=== PATIENT | female | born 1940 | race Caucasian/White ===

== ENCOUNTER 2017-03-03 20:40 | Outpatient (CLI) | payer MEDICARE, OTHER | END 2017-03-03 20:41 | disposition EMS.NT | LOC: EMS 20:40 | PROVIDERS: ATTEND Surgery | DX: Z03.89 Encounter for observation for other suspected diseases and conditions ruled out (principal) ==

== ENCOUNTER 2018-04-07 10:16 | Outpatient (CLI) | payer MEDICARE, OTHER ==
[2018-04-07 17:23] LABS: BASOPHILS # (AUTO) 0.1 10^3/uL (0.0-0.1); BASOPHILS % (AUTO) 1.1 %; EOSINOPHILS # (AUTO) 0.2 10^3/uL (0.0-0.7); EOSINOPHILS % (AUTO) 2.6 %; HGB - HEMOGLOBIN 14.2 g/dL (12.0-16.0); LYMPHOCYTES # (AUTO) 2.1 10^3/uL (1.5-3.5); LYMPHOCYTES % (AUTO) 28.1 %; MEAN CORPUSCULAR HEMOGLOBIN 32.1 pg (27.0-31.0); MEAN CORPUSCULAR HGB CONC 33.6 g/dL (32.0-36.0); MEAN CORPUSCULAR VOLUME 95.6 fL (81.0-99.0); MEAN PLATELET VOLUME 7.8 fL (7.9-10.8); MONOCYTES # (AUTO) 0.6 10^3/uL (0.0-1.0); NEUTROPHILS # (AUTO) 4.5 10^3/uL (1.5-6.6); NEUTROPHILS % (AUTO) 60.2 %; PLT - PLATELET COUNT 342 10^3/uL (130-450); RED BLOOD COUNT 4.44 10^6/uL (4.20-5.40); RED CELL DISTRIBUTION WIDTH 13.9 % (12.0-15.0); WHITE BLOOD COUNT 7.5 x10^3/uL (4.8-10.8)
[2018-04-07 18:03] LABS: ALBUMIN 4.7 g/dL (3.2-5.5); ALBUMIN/GLOBULIN RATIO 1.6 (1.0-2.2); ALKALINE PHOSPHATASE 99 IU/L (42-121); ALT ALANINE AMINOTRANSFERASE 17 IU/L (10-60); AST ASPARTATE AMINOTRANSFERASE 27 IU/L (10-42); BILIRUBIN,TOTAL 0.8 mg/dL (0.2-1.0); BUN - BLOOD UREA NITROGEN 14 mg/dL (6-20); CALCIUM 9.4 mg/dL (8.5-10.3); CARBON DIOXIDE - CO2 26 mmol/L (21-32); CHLORIDE 105 mmol/L (101-111); CHOL/HDL RATIO 2.5 (<4.4); CHOLESTEROL 232 mg/dL; CREATININE 0.6 mg/dL (0.4-1.0); GFR - MDRD 97 (>89); GLUCOSE 91 mg/dL (70-100); HDL CHOLESTEROL 93 mg/dL; LDL CHOLESTEROL,CALCULATED 128 mg/dL; LDL/HDL RATIO 1.4 (<4.4); SODIUM 140 mmol/L (135-145); TOTAL PROTEIN 7.7 g/dL (6.7-8.2); VLDL CHOLESTEROL 11 mg/dL
== END 2018-04-07 10:17 | disposition home or self-care (01) ==
LOC: LAB.F 10:16
PROVIDERS: ATTEND Family Medicine
DX: M81.0 Age-related osteoporosis without current pathological fracture (principal); F43.0 Acute stress reaction; G47.00 Insomnia, unspecified; M17.11 Unilateral primary osteoarthritis, right knee
CPT/HCPCS: 36415; 80053; 80061; 83721; 84443; 85025

== ENCOUNTER 2019-01-02 13:16 | Outpatient (CLI) | payer MEDICARE, OTHER | END 2019-01-02 13:17 | disposition home or self-care (01) | LOC: DI 13:16 | PROVIDERS: ATTEND Family Medicine | DX: I07.1 Rheumatic tricuspid insufficiency (principal) | CPT/HCPCS: 93306 ==

== ENCOUNTER 2020-04-10 08:10 | Outpatient (CLI) | payer MEDICARE, OTHER | END 2020-04-10 08:11 | disposition home or self-care (01) | LOC: DI 08:10 | PROVIDERS: ATTEND Family Medicine | DX: I08.2 Rheumatic disorders of both aortic and tricuspid valves (principal) | CPT/HCPCS: 93306 ==

== ENCOUNTER 2020-06-19 12:58 | Outpatient (CLI) | payer MEDICARE, OTHER ==
[2020-06-19 15:15] LABS: BASOPHILS # (AUTO) 0.1 10^3/uL (0.0-0.1); BASOPHILS % (AUTO) 1.3 %; EOSINOPHILS # (AUTO) 0.3 10^3/uL (0.0-0.7); HGB - HEMOGLOBIN 14.2 g/dL (12.0-16.0); LYMPHOCYTES % (AUTO) 28.5 %; MEAN CORPUSCULAR HEMOGLOBIN 32.7 pg (27.0-31.0); MEAN CORPUSCULAR HGB CONC 33.5 g/dL (32.0-36.0); MEAN CORPUSCULAR VOLUME 97.7 fL (81.0-99.0); MEAN PLATELET VOLUME 9.8 fL (7.9-10.8); MONOCYTES # (AUTO) 0.7 10^3/uL (0.0-1.0); MONOCYTES % (AUTO) 9.2 %; NEUTROPHILS # (AUTO) 4.1 10^3/uL (1.5-6.6); NEUTROPHILS % (AUTO) 56.7 %; PLT - PLATELET COUNT 343 10^3/uL (130-450); RED BLOOD COUNT 4.34 10^6/uL (4.20-5.40); RED CELL DISTRIBUTION WIDTH 12.3 % (12.0-15.0); WHITE BLOOD COUNT 7.2 x10^3/uL (4.8-10.8)
[2020-06-19 15:41] LABS: ALBUMIN 4.8 g/dL (3.2-5.5); ALBUMIN/GLOBULIN RATIO 1.6 (1.0-2.2); BILIRUBIN,TOTAL 0.6 mg/dL (0.2-1.0); CALCIUM 9.8 mg/dL (8.5-10.3); CREATININE 0.6 mg/dL (0.4-1.0); TOTAL PROTEIN 7.8 g/dL (6.7-8.2)
== END 2020-06-19 12:59 | disposition home or self-care (01) ==
LOC: LAB.S 12:58
PROVIDERS: ATTEND Internal Medicine Rheumatology
DX: E55.9 Vitamin D deficiency, unspecified (principal); Z86.79 Personal history of other diseases of the circulatory system
CPT/HCPCS: 36415; 80053; 82306; 85025; 85651; 86140

== ENCOUNTER 2020-12-09 09:50 | Outpatient (CLI) | payer MEDICARE, OTHER ==
[2020-12-09 10:11] LABS: BASOPHILS # (AUTO) 0.1 10^3/uL (0.0-0.1); BASOPHILS % (AUTO) 1.4 %; EOSINOPHILS # (AUTO) 0.3 10^3/uL (0.0-0.7); EOSINOPHILS % (AUTO) 5.1 %; HCT - HEMATOCRIT 44.1 % (37.0-47.0); HGB - HEMOGLOBIN 14.1 g/dL (12.0-16.0); LYMPHOCYTES # (AUTO) 2.3 10^3/uL (1.5-3.5); LYMPHOCYTES % (AUTO) 35.4 %; MEAN CORPUSCULAR HEMOGLOBIN 31.3 pg (27.0-31.0); MEAN CORPUSCULAR VOLUME 97.8 fL (81.0-99.0); MEAN PLATELET VOLUME 8.9 fL (7.9-10.8); MONOCYTES # (AUTO) 0.6 10^3/uL (0.0-1.0); MONOCYTES % (AUTO) 9.4 %; NEUTROPHILS # (AUTO) 3.2 10^3/uL (1.5-6.6); NEUTROPHILS % (AUTO) 48.4 %; PLT - PLATELET COUNT 299 10^3/uL (130-450); RED BLOOD COUNT 4.51 10^6/uL (4.20-5.40); RED CELL DISTRIBUTION WIDTH 13.4 % (12.0-15.0); WHITE BLOOD COUNT 6.5 x10^3/uL (4.8-10.8)
[2020-12-09 10:25] LABS: ALBUMIN 4.7 g/dL (3.2-5.5); ALBUMIN/GLOBULIN RATIO 1.5 (1.0-2.2); ALKALINE PHOSPHATASE 75 IU/L (42-121); ALT ALANINE AMINOTRANSFERASE 16 IU/L (10-60); AST ASPARTATE AMINOTRANSFERASE 23 IU/L (10-42); BILIRUBIN,TOTAL 0.6 mg/dL (0.2-1.0); BUN - BLOOD UREA NITROGEN 18 mg/dL (6-20); CALCIUM 9.5 mg/dL (8.5-10.3); CARBON DIOXIDE - CO2 22 mmol/L (21-32); CHLORIDE 104 mmol/L (101-111); CREATININE 0.6 mg/dL (0.4-1.0); GFR - MDRD 97 (>89); GLUCOSE 99 mg/dL (70-100); POTASSIUM 3.4 mmol/L (3.5-5.0); SODIUM 138 mmol/L (135-145); TOTAL PROTEIN 7.8 g/dL (6.7-8.2)
[2020-12-09 10:54] LABS: CRP - C-REACTIVE PROTEIN < 1.0 mg/dL (0-1.0)
--- NOTE | 2020-12-10 16:22 | DEXA Report ---
PROCEDURE: Dexa Spine and/or Hip INDICATIONS: OSTEOPOROSIS TECHNIQUE: Dual energy x-ray absorptiometry (DXA) was performed on a Weavly System. Regions measur ed are the AP Spine, femoral neck, and if needed forearm. COMPARISON: None. FINDINGS: Lumbar Spine: Bone Mineral Density 1.310 g/cm/cm,T score 1.1, normal Left Hip: Bone Mineral Density 0.773 g/cm/cm,T score -1.9, osteopenia Left Femoral Neck: Bone Mineral Density 0.697 g/cm/cm, T score -2.5, osteoporosis (T score greater or equal to -1.0: NORMAL) (T score from -1.1 to -2.4: OSTEOPENIA) (T score less than or equal to -2.5 to: OSTEOPOROSIS) Impression: Normal bone mineral density at the lumbosacral spine but osteopenia is present at the lef t hip overall and osteoporosis is seen at the left femoral neck. Patients with diagnosis of osteoporosis or osteopenia should have regular bone mineral density assess ment. For those eligible for Medicare, routine testing is allowed once every 2 years. Testing frequ ency can be increased for patients who have rapidly progressing disease or for those who are receivin g medical therapy to restore bone mass. Reviewed by: Irwin Meehan MD on 12/10/2020 4:20 PM PDT Approved by: Irwin Meehan MD on 12/10/2020 4:20 PM PDT Station ID: [id number]
== END 2020-12-09 09:51 | disposition home or self-care (01) ==
LOC: DI 09:50
PROVIDERS: ATTEND Internal Medicine Rheumatology
DX: M81.0 Age-related osteoporosis without current pathological fracture (principal)
CPT/HCPCS: 36415; 80053; 82306; 85025; 85651; 86140

== ENCOUNTER 2021-01-27 14:30 | Outpatient (CLI) | payer MEDICARE, OTHER ==
--- NOTE | 2021-01-27 14:54 | XRAY Report ---
PROCEDURE: Lumbar Spine 2 View INDICATIONS: Lumbar radiculopathy TECHNIQUE: 2 views of the lumbar spine were acquired. COMPARISON: None FINDINGS: Bones: There is S-shaped scoliosis in the thoracolumbar lumbar spine. A lower lumbar spine levoscolio sis centered at L4 has a Hussein angle of approximately 13 degrees. A thoracolumbar dextroscoliosis has a Hussein angle of approximately 5 degrees. Rotational component to the scoliosis is present. Straighten ing of the usual lumbar lordosis. No listhesis. There is chronic-appearing height loss at the T12 lev el with approximately 50% height loss anteriorly and centrally and approximately 30% height loss post eriorly. Extensive diffuse disc height loss at every level in the lumbar spine. Associated degenerati ve endplate change and facet hypertrophy producing at least moderate neural foraminal narrowing from L3-L4 through L5-S1. Soft tissues: Overlying bowel gas pattern is normal. No suspicious soft tissue calcifications. IMPRESSION: Chronic-appearing compression fracture at T12 with approximately 50% height loss. Slight osseous retr opulsion producing suspected spinal canal stenosis, likely mild to moderate. Cross-sectional imaging recommended for further evaluation (preferably MRI although CT could be considered if there are contr aindications to MRI). Multifactorial extensive degenerative changes producing suspected moderate neural foraminal narrowing from L3-L4 through L5-S1. S-shaped scoliosis in the thoracolumbar lumbar spine. Reviewed by: Romero Daniels MD on 01/27/2021 2:53 PM PDT Approved by: Romero Daniels MD on 01/27/2021 2:53 PM PDT Station ID: [id number]
== END 2021-01-27 14:31 | disposition home or self-care (01) ==
LOC: DI 14:30
PROVIDERS: ATTEND Family Medicine
DX: M47.27 Other spondylosis with radiculopathy, lumbosacral region (principal); M41.9 Scoliosis, unspecified; M25.559 Pain in unspecified hip

== ENCOUNTER 2021-02-10 07:07 | Outpatient (CLI) | payer MEDICARE, OTHER ==
--- NOTE | 2021-02-10 12:18 | Ultrasound Report ---
PROCEDURE: Carotid Doppler Complete INDICATIONS: LUMBAR RADICULOPATHY, CAROTID BRUIT TECHNIQUE: Color and pulse Doppler interrogation was performed of both carotid systems, with image documentation and velocity measurements. COMPARISON: None. FINDINGS: Right side: Brachial blood pressure: 140/64 mm Hg. Common carotid artery peak systolic velocity: 74 cm/sec. Internal carotid artery peak systolic velocity: 106 cm/sec. Internal carotid artery end diastolic velocity: 29 cm/sec. External carotid artery peak systolic velocity: 84 cm/sec. ICA/CCA peak systolic ratio: 1.4 . Silva scale imaging description: Calcified plaque Percent internal carotid artery stenosis: Less than 50% . Vertebral artery: Flow direction is antegrade. Left side: Brachial blood pressure: 134/57 mm Hg. Common carotid artery peak systolic velocity: 72 cm/sec. Internal carotid artery peak systolic velocity: 95 cm/sec. Internal carotid artery end diastolic velocity: 30 cm/sec. External carotid artery peak systolic velocity: 72 cm/sec. ICA/CCA peak systolic ratio: 1.3 . Silva scale imaging description: Calcified plaque Percent internal carotid artery stenosis: Less than 50% . Vertebral artery: Flow direction is antegrade. IMPRESSION: Less than 50% stenosis of the origins of the internal carotid arteries bilaterally. The estimate of stenosis included in the report of the imaging study was calculated using the NASCET method Reviewed by: Marlin Mcnulty MD, PhD on 02/10/2021 12:17 PM PDT Approved by: Marlin Mcnulty MD, PhD on 02/10/2021 12:17 PM PDT Station ID: [id number]
--- NOTE | 2021-02-10 14:37 | MRI Report ---
PROCEDURE: Lumbar Spine W/O INDICATIONS: LUMBAR RADICULOPATHY TECHNIQUE: Noncontrast sagittal T1 spin echo and T2 fast echo, sagittal STIR, coronal T2, axial T1 and T2 fast s pin echo through the lumbar spine. In cases with scoliosis, additional coronal T2 fast spin echo may be performed. COMPARISON: Plain films of the lumbar spine dated 01/27/2021. FINDINGS: Image quality: Excellent. Alignment and Curvature: 5 lumbar type vertebral bodies are present by plain film. There is moderate leftward curvature of the lower lumbar spine and moderate rightward curvature of the upper lumbar spi ne. There is loss of normal lumbar lordosis. There is mild grade 1 retrolisthesis of L1 on L2 and L2 on L3. Bone Marrow: Marrow is of normal overall signal. No acute vertebral body compression fractures. Mo derate reactive signal throughout the endplates of the lumbar and lower thoracic spine. There is mild chronic wedging of T12. Spinal Cord: Conus medullaris terminates at the L1-L2 disc space level. Visualized cord demonstrate s normal signal and size. Paraspinous Soft Tissues: No paravertebral masses. T12-L1: Moderate disc height loss and desiccation. Moderate diffuse disc bulge with superimposed bro ad-based right posterolateral and far lateral protrusion. Mild facet and ligament flavum hypertrophy. Mild epidural lipomatosis. Moderate canal stenosis. Moderate bilateral foraminal stenosis. L1-L2: Moderate disc height loss and desiccation. Mild diffuse disc bulge. Mild facet and ligament flavum hypertrophy. Mild epidural lipomatosis. Mild canal stenosis. Mild right and moderate left for aminal stenosis. L2-L3: Moderate disc height loss and desiccation. Moderate diffuse disc bulge. Mild facet and liga ment flavum hypertrophy. Mild epidural lipomatosis. Mild canal stenosis. Mild bilateral foraminal jaimee nosis. L3-L4: Moderate disc height loss and desiccation. Mild diffuse disc bulge. Mild facet and ligament flavum hypertrophy. Mild epidural lipomatosis. Mild canal stenosis. Moderate bilateral foraminal sten osis. L4-L5: Moderate disc height loss and desiccation. Mild diffuse disc bulge. Mild facet and ligament flavum hypertrophy. Mild canal stenosis. Moderate right greater than left foraminal stenosis. L5-S1: Moderate disc height loss and desiccation. Mild diffuse disc bulge. Mild bilateral facet and ligament flavum hypertrophy. Mild canal stenosis. Mild right and moderate left foraminal stenosis. IMPRESSION: 1. Multilevel degenerative disc and facet disease, in addition to epidural lipomatosis and ligamentum flavum hypertrophy. 2. Multilevel canal stenoses, worst at T12-L1, where there is moderate canal stenosis. 3. Multilevel foraminal stenoses, worst at T12-L1, L1-L2, L3-L4, L4-L5, and L5-S1, where there are mo derate foraminal stenoses as described above. Reviewed by: Dusty Tubbs MD on 02/10/2021 2:36 PM PDT Approved by: Dusty Tubbs MD on 02/10/2021 2:36 PM PDT Station ID: [id number]
== END 2021-02-10 07:08 | disposition home or self-care (01) ==
LOC: DI 07:07
PROVIDERS: ATTEND Family Medicine
DX: M51.17 Intervertebral disc disorders with radiculopathy, lumbosacral region (principal); M48.07 Spinal stenosis, lumbosacral region; R09.89 Other specified symptoms and signs involving the circulatory and respiratory systems
CPT/HCPCS: 93880

== ENCOUNTER 2021-05-16 15:22 | Outpatient (CLI) | payer MEDICARE, OTHER | END 2021-05-16 15:23 | disposition EMS.NT | LOC: EMS 15:22 | DX: Z03.89 Encounter for observation for other suspected diseases and conditions ruled out (principal) ==

== ENCOUNTER 2021-08-18 19:22 | Outpatient (CLI) | payer MEDICARE, OTHER | END 2021-08-18 19:23 | disposition critical access hospital (66) | LOC: EMS 19:22 | DX: R58 Hemorrhage, not elsewhere classified (principal); Z96.641 Presence of right artificial hip joint; R42 Dizziness and giddiness; S09.90XA Unspecified injury of head, initial encounter; Y92.009 Unspecified place in unspecified non-institutional (private) residence as the place of occurrence of the external cause; W18.39XA Other fall on same level, initial encounter; Z79.01 Long term (current) use of anticoagulants | CPT/HCPCS: A0425; A0429 ==

== ENCOUNTER 2021-08-18 19:47 | Emergency (ER) | payer MEDICARE, OTHER ==
--- NOTE | 2021-08-18 19:55 | ED Physician Documentation ---
PD HPI Fall - Stated complaint Stated Complaint: GLF, DIZZY, HIT HEAD, NECK PAIN, INCISION BLEEDING - History obtained from History obtained from: Patient - History of Present Illness Mechanism of injury: Lost balance Fall distance: Standing position Where injury occurred: Home Timing - onset: Enter time (16:30), Today Injury(ies) location: Head Pain level now: 2 Associated symptoms: No: LOC, AMS, Neck pain Contributing factors: Anticoagulated - Additional information Additional information: patient underwent right hip replacement approximately 3 weeks ago (Dr. Head at [facility]). Patient says that since the surgery she has had daily episodes of dizziness. Four days ago, without apparent provoking incident, she noted sudden increased swelling of the right hip area. She says she spoke to orthopedic surgery and was told this was likely a hematoma and could be evaluated in follow-up. Tonight she had an episode of dizziness that caused her to fall. She denies LOC. She notes some bleeding from the right hip surgical site subsequent to falling. she does not note any increase in hip pain after falling but she is having generalized headache. Review of Systems Constitutional: reports: Reviewed and negative Eyes: reports: Reviewed and negative Ears: reports: Reviewed and negative Nose: reports: Reviewed and negative Throat: reports: Reviewed and negative Cardiac: reports: Reviewed and negative Respiratory: reports: Reviewed and negative GI: reports: Reviewed and negative : denies: Dysuria, Frequency Musculoskeletal: denies: Neck pain, Back pain Neurologic: reports: Headache, Head injury. denies: Generalized weakness, Focal weakness, Numbness, LOC PD PAST MEDICAL HISTORY - Past Medical History Past Medical History: Yes Cardiovascular: Atrial fibrillation - Past Surgical History Past Surgical History: Yes Ortho: Hip replacement /[employer]: Tubal ligation, Hysterectomy - Present Medications Home Medications: Ambulatory Orders Medication Instructions Recorded Confirmed Gabapentin [Neurontin] 100 mg PO DAILY 01/11/14 08/18/21 Apixaban [Eliquis] 5 mg PO BID 08/18/21 08/18/21 - Allergies Allergies/Adverse Reactions: Allergies Allergy/AdvReac Type Severity Reaction Status Date / Time acetaminophen [From Percocet] AdvReac Unknown Verified 08/18/21 20:15 oxycodone [From Percocet] AdvReac Unknown Verified 08/18/21 20:15 - Social History Does the pt smoke?: No Smoking Status: Never smoker Does the pt drink ETOH?: Yes Does the pt have substance abuse?: No - Immunizations Immunizations are current?: Yes - POLST Patient has POLST: No PD ED PE NORMAL - Vitals Vital signs reviewed: Yes - General General: Alert and oriented X 3, No acute distress, Well developed/nourished - HEENT HEENT: PERRL, EOMI, Other (right frontal scalp hematoma without bony tenderness) - Neck Neck: Supple, no meningeal sign, No bony TTP - Cardiac Cardiac: RRR, No murmur - Respiratory Respiratory: No respiratory distress, Clear bilaterally - Abdomen Abdomen: Soft, Non tender - Neuro Neuro: Alert and oriented X 3, senior science consultant 2-12 intact, No motor deficit, No sensory deficit, Normal speech Eye Opening: Spontaneous Motor: Obeys Commands Verbal: Oriented GCS Score: 15 PD ED PE EXPANDED - Extremities Extremities: Other (right hip surgical site: mostly intact but there is a 2-3 cm length that has 2 mm gap in wound edges with scant bleeding and visible clots . she has good ROM of the right hip) Results - Vitals Vitals: Vital Signs - 24 hr 08/18/21 08/18/21 08/18/21 22:05 22:53 23:29 Temperature 36.6 C Heart Rate 105 H 106 H 99 Respiratory 17 16 16 Rate Blood Pressure 115/67 131/80 H 106/51 L O2 Saturation 97 100 08/18/21 08/18/21 08/18/21 23:35 23:44 23:50 Temperature 36.4 C L 36.4 C L Heart Rate 101 H 99 110 H Respiratory 16 16 16 Rate Blood Pressure 95/45 L 117/55 L O2 Saturation 08/19/21 08/19/21 08/19/21 01:07 01:42 02:01 Temperature 36.7 C 36.6 C Heart Rate 112 H 99 88 Respiratory 16 20 17 Rate Blood Pressure 92/42 L O2 Saturation 08/19/21 08/19/21 08/19/21 02:03 02:07 02:18 Temperature 36.6 C Heart Rate 86 Respiratory 16 16 Rate Blood Pressure 101/57 L O2 Saturation 08/19/21 08/19/21 08/19/21 03:54 03:57 05:59 Temperature 36.4 C L 36.4 C L Heart Rate 100 99 Respiratory 16 15 16 Rate Blood Pressure 102/52 L 101/45 L O2 Saturation 95 08/19/21 08/19/21 08/19/21 08:14 09:42 11:55 Temperature 36.6 C 36.1 C L Heart Rate 92 87 90 Respiratory 16 14 14 Rate Blood Pressure 105/75 106/51 L 108/51 L O2 Saturation 98 94 100 Oxygen O2 Source Room air - Labs Labs: Microbiology 08/18/21 22:00 Occult Blood - Final Stool Laboratory Tests 08/18/21 08/18/21 08/18/21 20:00 20:00 20:00 WBC 35.0 H* RBC 1.83 L Hgb 6.1 L* Hct 18.3 L* MCV 100.0 H MCH 33.3 H MCHC 33.3 RDW 13.5 Plt Count 449 MPV 9.1 Neut # (Auto) Not Reportable Lymph # (Auto) Not Reportable Garvin # (Auto) Not Reportable Eos # (Auto) Not Reportable Baso # (Auto) Not Reportable Absolute Nucleated RBC Not Reportable Total Counted 100 Band Neuts % (Manual) 6 Abnorm Lymph % (Manual) 0 Nucleated RBC % Not Reportable Neutrophils # (Manual) 32.6 H Lymphocytes # (Manual) 1.1 L Monocytes # (Manual) 1.1 H Eosinophils # (Manual) 0.0 Basophils # (Manual) 0.4 H Differential Comment MANUAL DIFFERENTIAL WBC Morphology Platelet Estimate NORMAL (130-450,000) Platelet Morphology RBC Morph Micro Appear NORMAL APPEARANCE PT 19.1 H INR 1.7 H APTT 31.1 Sodium 126 L Potassium 3.8 Chloride 95 L Carbon Dioxide 20 L Anion Gap 11.0 BUN 27 H Creatinine 1.5 H Estimated GFR (MDRD) 34 L Glucose 175 H Calcium 8.5 Total Bilirubin 0.6 AST 23 ALT 12 Alkaline Phosphatase 63 Total Protein 6.4 L Albumin 3.6 Globulin 2.8 Albumin/Globulin Ratio 1.3 Lipase 23 Nasal Adenovirus (PCR) Nasal B. parapertussis DNA (PCR) Nasal Coronavir 229E PCR Nasal Coronavir HKU1 PCR Nasal Coronavir NL63 PCR Nasal Coronavir OC43 PCR Nasal Enterovir/Rhinovir PCR Nasal Influenza B PCR Nasal Influenza A PCR Nasal Parainfluen 1 PCR Nasal Parainfluen 2 PCR Nasal Parainfluen 3 PCR Nasal Parainfluen 4 PCR Nasal RSV (PCR) Nasal B.pertussis DNA PCR Nasal C.pneumoniae (PCR) Kanu Human Metapneumo PCR Nasal M.pneumoniae (PCR) Nasal SARS-CoV-2 (PCR) Blood Type Antibody Screen Crossmatch IS Only 08/18/21 08/18/21 08/19/21 21:44 23:35 04:04 WBC 25.1 H RBC 2.50 L Hgb 7.9 L Hct 23.6 L MCV 94.4 MCH 31.6 H MCHC 33.5 RDW 15.7 H Plt Count 324 MPV 8.5 Neut # (Auto) Not Reportable Lymph # (Auto) Not Reportable Garvin # (Auto) Not Reportable Eos # (Auto) Not Reportable Baso # (Auto) Not Reportable Absolute Nucleated RBC Not Reportable Total Counted 100 Band Neuts % (Manual) 1 Abnorm Lymph % (Manual) 0 Nucleated RBC % Not Reportable Neutrophils # (Manual) 23.1 H Lymphocytes # (Manual) 1.5 Monocytes # (Manual) 0.0 Eosinophils # (Manual) 0.5 Basophils # (Manual) 0.0 Differential Comment MANUAL DIFFERENTIAL WBC Morphology NORMAL APPEARANCE Platelet Estimate NORMAL (130-450,000) Platelet Morphology NORMAL APPEARANCE RBC Morph Micro Appear 1+ ANISOCYTOSIS PT INR APTT Sodium Potassium Chloride Carbon Dioxide Anion Gap BUN Creatinine Estimated GFR (MDRD) Glucose Calcium Total Bilirubin AST ALT Alkaline Phosphatase Total Protein Albumin Globulin Albumin/Globulin Ratio Lipase Nasal Adenovirus (PCR) NOT DETECTED Nasal B. parapertussis DNA (PCR) NOT DETECTED Nasal Coronavir 229E PCR NOT DETECTED Nasal Coronavir HKU1 PCR NOT DETECTED Nasal Coronavir NL63 PCR NOT DETECTED Nasal Coronavir OC43 PCR NOT DETECTED Nasal Enterovir/Rhinovir PCR NOT DETECTED Nasal Influenza B PCR NOT DETECTED Nasal Influenza A PCR NOT DETECTED Nasal Parainfluen 1 PCR NOT DETECTED Nasal Parainfluen 2 PCR NOT DETECTED Nasal Parainfluen 3 PCR NOT DETECTED Nasal Parainfluen 4 PCR NOT DETECTED Nasal RSV (PCR) NOT DETECTED Nasal B.pertussis DNA PCR NOT DETECTED Nasal C.pneumoniae (PCR) NOT DETECTED Kanu Human Metapneumo PCR NOT DETECTED Nasal M.pneumoniae (PCR) NOT DETECTED Nasal SARS-CoV-2 (PCR) NOT DETECTED Blood Type A POSITIVE Antibody Screen NEGATIVE Crossmatch IS Only See Detail 08/19/21 08/19/21 08/19/21 07:54 11:02 11:02 WBC 16.2 H RBC 2.49 L Hgb 8.0 L Hct 23.3 L MCV 93.6 MCH 32.1 H MCHC 34.3 RDW 16.5 H Plt Count 312 MPV 8.5 Neut # (Auto) 14.3 H Lymph # (Auto) 0.9 L Garvin # (Auto) 0.5 Eos # (Auto) 0.4 Baso # (Auto) 0.1 Absolute Nucleated RBC 0.02 Total Counted Band Neuts % (Manual) Abnorm Lymph % (Manual) Nucleated RBC % 0.1 Neutrophils # (Manual) Lymphocytes # (Manual) Monocytes # (Manual) Eosinophils # (Manual) Basophils # (Manual) Differential Comment WBC Morphology Platelet Estimate Platelet Morphology RBC Morph Micro Appear PT INR APTT Sodium 131 L 131 L Potassium 4.0 4.1 Chloride 101 102 Carbon Dioxide 21 22 Anion Gap 9.0 7.0 BUN 25 H 24 H Creatinine 0.9 0.9 Estimated GFR (MDRD) 61 L 61 L Glucose 98 96 Calcium 8.4 L 8.2 L Total Bilirubin AST ALT Alkaline Phosphatase Total Protein Albumin Globulin Albumin/Globulin Ratio Lipase Nasal Adenovirus (PCR) Nasal B. parapertussis DNA (PCR) Nasal Coronavir 229E PCR Nasal Coronavir HKU1 PCR Nasal Coronavir NL63 PCR Nasal Coronavir OC43 PCR Nasal Enterovir/Rhinovir PCR Nasal Influenza B PCR Nasal Influenza A PCR Nasal Parainfluen 1 PCR Nasal Parainfluen 2 PCR Nasal Parainfluen 3 PCR Nasal Parainfluen 4 PCR Nasal RSV (PCR) Nasal B.pertussis DNA PCR Nasal C.pneumoniae (PCR) Kanu Human Metapneumo PCR Nasal M.pneumoniae (PCR) Nasal SARS-CoV-2 (PCR) Blood Type Antibody Screen Crossmatch IS Only - Rads (name of study) CTH Radiology: Prelim report reviewed, See rad report CT cervical spine Radiology: Prelim report reviewed, See rad report CT right hip Radiology: Prelim report reviewed, See rad report PD MEDICAL DECISION MAKING - ED course Complexity details: reviewed results, re-evaluated patient, considered differential, d/w patient ED course: Patient presents after falling due to dizziness. She notes swelling right hip x 4 days; she underwent right hip replacement 3 weeks ago but swelling suddenly worsened 4 days ago. she is found to have severe anemia with hemoglobin 6.1, as well as WBC of 35k. She does not have elements of H+P to suggest acute infectious process. She is guaiac negative and CT hip demonstrates large hematoma. She is transfused two units PRBC. I discussed the case with Dr. Mejia (orthopedic surgery at [facility]). She will relay this information to Dr. Haed. Case signed out to Dr. Leija at end of my shift pending disposition. Departure - Departure Disposition: Home, Self Care Clinical Impression: Hematoma Anemia Qualifiers: Anemia type: unspecified type Qualified Code(s): D64.9 - Anemia, unspecified Leukocytosis Qualifiers: Leukocytosis type: unspecified Qualified Code(s): D72.829 - Elevated white blood cell count, unspecified Condition: Good Instructions: ED Hematoma Follow-Up: Tiffanie Olea MD [Primary Care Provider] - Within 3 Days Comments: You will need to have your blood counts rechecked with your doctor in 2 to 3 days. Please return sooner if you worsen. Stop your Eliquis until told by your doctor to resume it. Discharge Date/Time: 08/19/21 15:30
[2021-08-18] MEDS ORDERED: SODIUM CHLORIDE 0.9% 1,000 ML IV STA (20:21)
[2021-08-18] MEDS ORDERED: ONDANSETRON 4 MG/2 ML VIAL IVP STA (20:21)
[2021-08-18 20:42] LABS: BASOPHILS % (AUTO) 0.4 %; LYMPHOCYTES % (AUTO) 2.8 %; MEAN CORPUSCULAR HEMOGLOBIN 33.3 pg (27.0-31.0); MEAN CORPUSCULAR HGB CONC 33.3 g/dL (32.0-36.0); MEAN PLATELET VOLUME 9.1 fL (7.9-10.8); MONOCYTES % (AUTO) 2.9 %; NEUTROPHILS % (AUTO) 92.1 %; PLT - PLATELET COUNT 449 10^3/uL (130-450); RED BLOOD COUNT 1.83 10^6/uL (4.20-5.40); RED CELL DISTRIBUTION WIDTH 13.5 % (12.0-15.0)
[2021-08-18 20:43] LABS: ALBUMIN 3.6 g/dL (3.2-5.5); ALBUMIN/GLOBULIN RATIO 1.3 (1.0-2.2); BILIRUBIN,TOTAL 0.6 mg/dL (0.2-1.0); CALCIUM 8.5 mg/dL (8.5-10.3); CREATININE 1.5 mg/dL (0.4-1.0); POTASSIUM 3.8 mmol/L (3.5-5.0); TOTAL PROTEIN 6.4 g/dL (6.7-8.2)
[2021-08-18 20:48] LABS: HCT - HEMATOCRIT 18.3 % (37.0-47.0); HGB - HEMOGLOBIN 6.1 g/dL (12.0-16.0)
[2021-08-18 20:49] LABS: ABNORMAL LYMPHS % (MANUAL) 0 %
[2021-08-18 20:55] LABS: INR 1.7 (0.8-1.2); PT - PROTHROMBIN TIME 19.1 secs (9.9-12.6)
[2021-08-18 21:03] LABS: PARTIAL THROMBOPLASTIN TIME 31.1 secs (24.9-33.3)
--- NOTE | 2021-08-18 21:37 | CT Report ---
PROCEDURE: HEAD WO INDICATIONS: fall, head injury, NOAC TECHNIQUE: Noncontrast 4.5 mm thick angled axial sections acquired from the foramen magnum to the vertex. For r adiation dose reduction, the following was used: automated exposure control, adjustment of mA and/or kV according to patient size. COMPARISON: 01/11/2014. FINDINGS: Image quality: Excellent. CSF spaces: There is mild to moderate cerebral volume loss with prominence of the ventricles and sul ci. Basal cisterns are patent. No extra-axial fluid collections. Brain: No intracranial hemorrhage, mass, or mass effect. Silva-white matter interface is preserved. T here are subcortical and periventricular white matter hypodensities consistent with mild to moderate chronic small vessel ischemic changes. Skull and face: There is a soft tissue contusion in the right frontal scalp. Calvarium and visualiz ed facial bones are intact, without suspicious lesions. Sinuses: Visualized sinuses and mastoids are clear. IMPRESSION: 1. No acute intracranial abnormality. 2. Mild to moderate cerebral volume loss and chronic white matter small vessel ischemic changes. 3. Right frontal scalp soft tissue swelling without evidence of fracture. Reviewed by: Lavell Shepard MD on 08/18/2021 9:35 PM PST Approved by: Lavell Shepard MD on 08/18/2021 9:35 PM PST Station ID: [id number]
--- NOTE | 2021-08-18 21:43 | CT Report ---
PROCEDURE: CERVICAL SPINE WO INDICATIONS: fall, neck pain TECHNIQUE: Noncontrast 3 mm thick sections acquired from the skull base to the T4 level. Sagittal and coronal r eformats were then constructed. For radiation dose reduction, the following was used: automated exp osure control, adjustment of mA and/or kV according to patient size. COMPARISON: None. FINDINGS: Image quality: Excellent. Bones: No fractures or subluxation. There is mild reversal of the cervical lordosis centered at C5. Multilevel degenerative disc disease present including severe degeneration in the mid and lower cerv ical spine at C4-C5, C5-C6, and C6-C7. There is moderate multilevel facet arthropathy throughout the cervical spine. Moderate degeneration also noted at atlantoaxial joint. Visualized superior ribs are intact. Soft tissues: Prevertebral soft tissues are normal in thickness. No paravertebral hematomas. No ap ical pneumothoraces. IMPRESSION: 1. No acute fracture or subluxation. 2. Multilevel degenerative changes throughout the cervical spine including severe degenerative disc d isease in the mid and lower cervical spine. Reviewed by: Lavell Shepard MD on 08/18/2021 9:41 PM PST Approved by: Lavell Shepard MD on 08/18/2021 9:41 PM PST Station ID: [id number]
[2021-08-18 22:52] LABS: BAND NEUTROPHILS % (MANUAL) 6 %; BASOPHILS # (MANUAL) 0.4 10^3/uL (0-0.1); BASOPHILS % (MANUAL) 1 %; LYMPHOCYTES # (MANUAL) 1.1 10^3/uL (1.5-3.5); LYMPHOCYTES % (MANUAL) 3 %; MONOCYTES # (MANUAL) 1.1 10^3/uL (0.0-1.0); NEUTROPHILS # (MANUAL) 32.6 10^3/uL (1.5-6.6)
[2021-08-18 22:53] LABS: DIFFERENTIAL COMMENT MANUAL DIFFERENTIAL; PLATELET ESTIMATE, MANUAL NORMAL (130-450,000) (NORMAL); RBC MORPHOLOGY (MULTIPLE) NORMAL APPEARANCE (NORMAL)
[2021-08-19 00:31] LABS: B. PARAPERTUSSIS- RESP PCR PAN NOT DETECTED; B. PERTUSSIS- RESP PCR PANEL NOT DETECTED; C. PNEUMONIAE- RESP PCR PANEL NOT DETECTED; CORONAVIRUS 229E-RESP PCR NOT DETECTED; CORONAVIRUS HKU1-RESP PCR NOT DETECTED; CORONAVIRUS NL63-RESP PCR NOT DETECTED; CORONAVIRUS OC43-RESP PCR NOT DETECTED; HUMAN METAPNEUMOVIRUS NOT DETECTED; INFLUENZA A- RESP PCR PANEL NOT DETECTED; INFLUENZA B - RESP PCR PANEL NOT DETECTED; M. PNEUMONIAE- RESP PCR PANEL NOT DETECTED; PARAINFLUENZA VIRUS 1 NOT DETECTED; PARAINFLUENZA VIRUS 2 NOT DETECTED; PARAINFLUENZA VIRUS 3 NOT DETECTED; PARAINFLUENZA VIRUS 4 NOT DETECTED; RHINOVIRUS/ENTEROVIRUS NOT DETECTED; RSV- RESP PCR PANEL NOT DETECTED; SARS-CoV-2 -RESP PCR PANEL NOT DETECTED
--- NOTE | 2021-08-19 01:10 | CT Report ---
PROCEDURE: LOWER EXTREMITY WO - RT INDICATIONS: right hip surgery 3 weeks ago, fell tonight TECHNIQUE: Noncontrast 3 mm axial sections acquired of the possible right lower extremity, with coronal and sagi ttal reformats. COMPARISON: None. FINDINGS: Image quality: Excellent. Bones: A right hip prosthesis is present and appears congruent. No displaced fracture or dislocation . There is a small curvilinear lucency within the medial right acetabulum with suggestion of a cortic ated margins. The findings likely represent a nutrient foramen or vascular channel but a nondisplaced fracture cannot be excluded. There is moderate degeneration of the pubic symphysis. Severe degenerative disc disease is also demon strated in the lower lumbar spine as well as moderate facet arthropathy. Soft tissues: There is a partially visualized slightly hyperattenuating collection lateral to the ri ght hip likely representing a subcutaneous hematoma. This measures up to approximately 13.9 cm in crap shooter niocaudal dimension by 9.3 cm in anterior posterior dimension. The visualized pelvis demonstrates no intraperitoneal free fluid. Colonic diverticulosis is noted. IMPRESSION: 1. Right hip prosthesis appears congruent. 2. No displaced fracture or dislocation. 3. Small curvilinear lucency within the medial right acetabulum likely represents a nutrient foramen or vascular channel but a nondisplaced fracture cannot be excluded. 4. Partially visualized subcutaneous collection lateral to the right hip likely representing a hemato ma. Reviewed by: Lavell Shepard MD on 08/19/2021 1:08 AM [facility] Approved by: Lavell Shepard MD on 08/19/2021 1:08 AM PST Station ID: [id number]
[2021-08-19 04:11] LABS: BASOPHILS % (AUTO) 0.5 %; EOSINOPHILS % (AUTO) 0.7 %; HCT - HEMATOCRIT 23.6 % (37.0-47.0); HGB - HEMOGLOBIN 7.9 g/dL (12.0-16.0); LYMPHOCYTES % (AUTO) 4.9 %; MEAN CORPUSCULAR HEMOGLOBIN 31.6 pg (27.0-31.0); MEAN CORPUSCULAR HGB CONC 33.5 g/dL (32.0-36.0); MEAN CORPUSCULAR VOLUME 94.4 fL (81.0-99.0); MEAN PLATELET VOLUME 8.5 fL (7.9-10.8); MONOCYTES % (AUTO) 4.7 %; NEUTROPHILS % (AUTO) 87.2 %; PLT - PLATELET COUNT 324 10^3/uL (130-450); RED CELL DISTRIBUTION WIDTH 15.7 % (12.0-15.0); WHITE BLOOD COUNT 25.1 x10^3/uL (4.8-10.8)
[2021-08-19 04:30] LABS: ABNORMAL LYMPHS % (MANUAL) 0 %
[2021-08-19 04:33] LABS: BAND NEUTROPHILS % (MANUAL) 1 %; DIFFERENTIAL COMMENT MANUAL DIFFERENTIAL; EOSINOPHILS # (MANUAL) 0.5 10^3/uL (0-0.7); LYMPHOCYTES # (MANUAL) 1.5 10^3/uL (1.5-3.5); LYMPHOCYTES % (MANUAL) 6 %; NEUTROPHILS # (MANUAL) 23.1 10^3/uL (1.5-6.6); PLATELET ESTIMATE, MANUAL NORMAL (130-450,000) (NORMAL); PLATELET MORPHOLOGY NORMAL APPEARANCE (NORMAL); RBC MORPHOLOGY (MULTIPLE) 1+ ANISOCYTOSIS (NORMAL); WBC MORPHOLOGY (MULTIPLE) NORMAL APPEARANCE (NORMAL)
[2021-08-19] MEDS ORDERED: ACETAMINOPHEN 325 MG TABLET PO STA (06:01)
[2021-08-19] MEDS ORDERED: SODIUM CHLORIDE 0.9% 1,000 ML IV STA (07:10)
[2021-08-19 08:14] LABS: CALCIUM 8.4 mg/dL (8.5-10.3); CREATININE 0.9 mg/dL (0.4-1.0)
--- NOTE | 2021-08-19 08:46 | XRAY Report ---
PROCEDURE: Hip w/Pelvis 2-3V RT INDICATIONS: R hip pain TECHNIQUE: AP pelvis with lateral view(s) of the right hip(s). COMPARISON: CT right hip dated 08/19/2021 FINDINGS: Bones: Status post right total hip arthroplasty. No evidence for acute hardware complication. Alignm ent is anatomic. Previously described curvilinear lucency over the medial right acetabulum is not vis ualized radiographically. Otherwise, no fractures or dislocations. Pelvic ring appears intact. No s uspicious bony lesions. Moderate lower lumbar spondylosis. Soft tissues: The visualized bowel gas pattern is normal. No suspicious soft tissue calcifications. IMPRESSION: Status post right total hip arthroplasty without evidence for acute hardware complicatio ns. Previously described curvilinear lucency involving the medial right acetabulum is not visible rad iographically. Reviewed by: Brian Uriostegui MD on 08/19/2021 8:45 AM PST Approved by: Brian Uriostegui MD on 08/19/2021 8:45 AM PST Station ID: [id number]
[2021-08-19 11:10] LABS: BASOPHILS # (AUTO) 0.1 10^3/uL (0.0-0.1); BASOPHILS % (AUTO) 0.3 %; EOSINOPHILS # (AUTO) 0.4 10^3/uL (0.0-0.7); EOSINOPHILS % (AUTO) 2.2 %; HCT - HEMATOCRIT 23.3 % (37.0-47.0); LYMPHOCYTES # (AUTO) 0.9 10^3/uL (1.5-3.5); LYMPHOCYTES % (AUTO) 5.2 %; MEAN CORPUSCULAR HEMOGLOBIN 32.1 pg (27.0-31.0); MEAN CORPUSCULAR HGB CONC 34.3 g/dL (32.0-36.0); MEAN CORPUSCULAR VOLUME 93.6 fL (81.0-99.0); MEAN PLATELET VOLUME 8.5 fL (7.9-10.8); MONOCYTES # (AUTO) 0.5 10^3/uL (0.0-1.0); MONOCYTES % (AUTO) 3.2 %; NEUTROPHILS # (AUTO) 14.3 10^3/uL (1.5-6.6); NEUTROPHILS % (AUTO) 88.3 %; NRBC ABSOLUTE COUNT (AUTO) 0.02 x10^3/uL; NUCLEATED RED BLOOD CELLS AUTO 0.1 /100WBC; PLT - PLATELET COUNT 312 10^3/uL (130-450); RED BLOOD COUNT 2.49 10^6/uL (4.20-5.40); RED CELL DISTRIBUTION WIDTH 16.5 % (12.0-15.0); WHITE BLOOD COUNT 16.2 x10^3/uL (4.8-10.8)
[2021-08-19 11:16] LABS: CALCIUM 8.2 mg/dL (8.5-10.3); CREATININE 0.9 mg/dL (0.4-1.0); POTASSIUM 4.1 mmol/L (3.5-5.0)
[2021-08-19 11:55] VITALS: BP 108/51
--- NOTE | 2021-08-19 14:58 | ED Physician Documentation ---
ED Addendum - Addendum Addendum: 08/19/21 14:54 The patient's hemoglobin and hematocrit have remained stable throughout her emergency department stay. She states that her hip replacement was 2-1/2 weeks ago. Patient is ambulating without any difficulty. She states that she has fallen twice at home. This is likely causing the hematoma. I discussed the case with her orthopedist who recommends stopping the Eliquis. There are no beds available here or anywhere along the [facility] corridor. Patient does not want to stay in the emergency department. As her blood counts have remained stable, she is pain-free, no fevers, I think this is reasonable and we will have her follow-up closely with her doctor to have her blood counts rechecked. Likely that the hemoglobin drop was due to the hematoma. Patient counseled regarding signs and symptoms for which I believe and urgent re-evaluation would be necessary. Patient with good understanding of and agreement to plan and is comfortable going home at this time This document was made in part using voice recognition software. While efforts are made to proofread this document, sound alike and grammatical errors may occur. Departure - Departure Disposition: 01 Home, Self Care Clinical Impression: Hematoma Anemia Qualifiers: Anemia type: unspecified type Qualified Code(s): D64.9 - Anemia, unspecified Leukocytosis Qualifiers: Leukocytosis type: unspecified Qualified Code(s): D72.829 - Elevated white blood cell count, unspecified Condition: Good Instructions: ED Hematoma Follow-Up: Tiffanie Olea MD [Primary Care Provider] - Within 3 Days Comments: You will need to have your blood counts rechecked with your doctor in 2 to 3 days. Please return sooner if you worsen. Stop your Eliquis until told by your doctor to resume it.
== END 2021-08-19 15:30 | disposition home or self-care (01) ==
LOC: EDUNIT# → ED 19:47
DX: D64.9 Anemia, unspecified (principal); D72.829 Elevated white blood cell count, unspecified; Z96.641 Presence of right artificial hip joint; Z79.01 Long term (current) use of anticoagulants; I48.91 Unspecified atrial fibrillation; Z20.822 Contact with and (suspected) exposure to COVID-19; W18.39XA Other fall on same level, initial encounter; Z91.81 History of falling; Y92.009 Unspecified place in unspecified non-institutional (private) residence as the place of occurrence of the external cause
CPT/HCPCS: 36415; 36430; 70450; 72125; 73502; 73700; 80048; 80053; 82272; 83690; 85025; 85610; 85730; 86850; 86900; 86901; 86920; 87631; 96374; 99284; 99285; A9270; P9016; 0202U

== ENCOUNTER 2021-08-21 12:50 | Outpatient (CLI) | payer MEDICARE, OTHER ==
[2021-08-21 15:28] LABS: BASOPHILS % (AUTO) 0.4 %; EOSINOPHILS # (AUTO) 0.7 10^3/uL (0.0-0.7); EOSINOPHILS % (AUTO) 8.4 %; HCT - HEMATOCRIT 25.5 % (37.0-47.0); HGB - HEMOGLOBIN 8.3 g/dL (12.0-16.0); LYMPHOCYTES # (AUTO) 1.1 10^3/uL (1.5-3.5); LYMPHOCYTES % (AUTO) 12.8 %; MEAN CORPUSCULAR HGB CONC 32.5 g/dL (32.0-36.0); MEAN CORPUSCULAR VOLUME 98.5 fL (81.0-99.0); MONOCYTES # (AUTO) 0.8 10^3/uL (0.0-1.0); MONOCYTES % (AUTO) 10.1 %; NEUTROPHILS # (AUTO) 5.5 10^3/uL (1.5-6.6); NEUTROPHILS % (AUTO) 67.6 %; PLT - PLATELET COUNT 425 10^3/uL (130-450); RED BLOOD COUNT 2.59 10^6/uL (4.20-5.40); RED CELL DISTRIBUTION WIDTH 16.5 % (12.0-15.0); WHITE BLOOD COUNT 8.2 x10^3/uL (4.8-10.8)
[2021-08-21 15:50] LABS: ALBUMIN 3.4 g/dL (3.2-5.5); ALBUMIN/GLOBULIN RATIO 1.2 (1.0-2.2); BILIRUBIN,TOTAL 0.9 mg/dL (0.2-1.0); CALCIUM 8.2 mg/dL (8.5-10.3); CREATININE 0.5 mg/dL (0.4-1.0); POTASSIUM 3.2 mmol/L (3.5-5.0); TOTAL PROTEIN 6.3 g/dL (6.7-8.2)
== END 2021-08-21 12:51 | disposition home or self-care (01) ==
LOC: LAB.S 12:50
PROVIDERS: ATTEND Family Medicine
DX: K92.2 Gastrointestinal hemorrhage, unspecified (principal)
CPT/HCPCS: 36415; 80053; 85025

== ENCOUNTER 2023-01-14 08:00 | Outpatient (CLI) | payer MEDICARE, OTHER | END 2023-01-14 23:59 | disposition home or self-care (01) | LOC: LAB 08:00 | PROVIDERS: ATTEND Physician Assistant Medical | DX: L03.115 Cellulitis of right lower limb (principal) | CPT/HCPCS: 87070; 87181; 87205 ==

== ENCOUNTER 2023-01-20 08:00 | Outpatient (CLI) | payer MEDICARE, OTHER | END 2023-01-20 23:59 | disposition home or self-care (01) | LOC: LAB.R 08:00 | PROVIDERS: ATTEND Nurse Practitioner | DX: S81.801A Unspecified open wound, right lower leg, initial encounter (principal) | CPT/HCPCS: 87070; 87077; 87205 ==